=== PATIENT | male | born 1955 | race Caucasian/White ===

== ENCOUNTER 2016-11-28 22:06 | Inpatient (IN) | payer MEDICARE, MEDICAID ==
[~2016-11-28] VITALS: Ht 172.7 cm; Wt 74.4 kg
[2016-11-28] MEDS ORDERED: PANT40TA2 PO (22:53)
[2016-11-28] MEDS ORDERED: MULT1TAB11 PO (22:53)
[2016-11-28] MEDS ORDERED: BUPR150T5 PO (22:53)
[2016-11-28] MEDS ORDERED: SULI200T4 PO (22:53)
[2016-11-28] MEDS ORDERED: ACET-2154 PO (22:53)
[2016-11-28] MEDS ORDERED: OLAN5TAB3 PO (22:53)
[2016-11-28] MEDS ORDERED: PSYL1PAC8 PO (22:53)
[2016-11-28] MEDS ORDERED: [UNRECOGNIZED DRUG - CODE] PO (22:53)
[2016-11-28] MEDS ORDERED: DOCU240C26 PO (22:53)
[2016-11-28] MEDS ORDERED: MIRT15TA PO (22:53)
[2016-11-28 23:10] LABS: BASOPHILS % (AUTO) 0.6 % (0.0-2.0); EOSINOPHILS # (AUTO) 0.1 K/uL (0.0-0.7); EOSINOPHILS % (AUTO) 1.4 % (0.0-7.0); HEMATOCRIT 38.9 % (40-50); HEMOGLOBIN 13.1 G/DL (14.0-18.0); LYMPHOCYTES # (AUTO) 2.4 K/UL (0.8-4.8); LYMPHOCYTES % (AUTO) 31.4 % (20.5-51.5); MEAN CORPUSCULAR HEMOGLOBIN 32.6 UUG (27.0-31.0); MEAN CORPUSCULAR HGB CONC 34 g/dL (32.0-37.0); MEAN CORPUSCULAR VOLUME 97.2 FL (82.0-92.0); MONOCYTES # (AUTO) 0.7 K/UL (0.1-1.30); MONOCYTES % (AUTO) 9.4 % (0.0-11.0); NEUTROPHILS # (AUTO) 4.3 K/UL (1.8-8.9); NEUTROPHILS % (AUTO) 57.2 % (38.5-71.5); PLATELET COUNT (AUTO) 361 K/UL (150-450); RED BLOOD CELL COUNT(AUTO) 4.01 MIL/UL (4.7-6.1); WHITE BLOOD COUNT (AUTO) 7.5 K/UL (4.0-11.2)
[2016-11-28 23:23] LABS: ETHANOL < 3 MG/DL (0-0)
[2016-11-28 23:34] LABS: CARBON DIOXIDE 23 mmol/L (21-32); CHLORIDE 101 mmol/L (98-107); CREATININE 0.8 mg/dL (0.6-1.3); GLUCOSE 104 mg/dL (74-106); POTASSIUM 3.1 mmol/L (3.5-5.1); UREA NITROGEN, BLOOD 8 mg/dL (7-18)
[2016-11-28 23:37] LABS: THYROID STIMULATING HORMONE 3.103 mIU/mL (0.358-3.740)
[2016-11-28 23:38] LABS: ALANINE AMINOTRANSFERASE 22 U/L (16-63); ALKALINE PHOSPHATASE 41 U/L (50-136); ASPARTATE AMINOTRANSFERASE 15 U/L (15-37); BILIRUBIN,DIRECT 0.1 mg/dL (0.0-0.2); BILIRUBIN,TOTAL 0.3 mg/dL (0.2-1.0); TOTAL PROTEIN, SERUM 7.1 g/dL (6.4-8.2)
[2016-11-28 23:39] LABS: ACETAMINOPHEN < 2.0 ug/mL (10-30)
[2016-11-29] MEDS ORDERED: OLANZAPINE 10 MG VIAL IM ONE ×2 (00:39)
--- NOTE | 2016-11-29 02:37 | NUR ---
Pt. admitted to [facility], under care of Dr. Bertrand Belongs List completed
[2016-11-29 02:42] LABS: *BILIRUBIN,URIN NEGATIVE (NEGATIVE); *BLOOD, URINE NEGATIVE (NEGATIVE); *CLARITY,URINE CLEAR (CLEAR); *COLOR,URINE YELLOW (YELLOW); *KETONES,URINE NEGATIVE (NEGATIVE); *PROTEIN,URINE NEGATIVE (NEGATIVE); *UROBILINOGEN,URINE 0.2 E.U./dl (NORMAL); LEUKOCYTE ESTERASE ,URINE NEGATIVE (NEGATIVE); NITRITE, URINE NEGATIVE (NEGATIVE); PH,URINE 6.5 (5.0-8.0); UGLUCOSE NEGATIVE (NEGATIVE)
[2016-11-29 02:47] LABS: BACTERIA,URINE NONE SEEN /HPF (NONE SEEN); RBC,URINE 0-3 /HPF (0-3); SQUAMOUS EPITHELIAL CELL,UR NONE SEEN /HPF (NONE SEEN); WBC,URINE 0-3 /HPF (0-3)
[2016-11-29 02:48] LABS: *AMPHETAMINE, URINE NEGATIVE (NEGATIVE); *BARBITURATE, URINE NEGATIVE (NEGATIVE); *CANNABINOID, URINE NEGATIVE (NEGATIVE); *COCCAINE, URINE NEGATIVE (NEGATIVE); *OPIATE, URINE NEGATIVE (NEGATIVE); *PHENCYCLIDINE SCREEN,URINE NEGATIVE (NEGATIVE)
[2016-11-29] MEDS ORDERED: MAGNESIUM HYDROXIDE 30 ML LIQUID UDC PO PRN (03:00)
[2016-11-29] MEDS ORDERED: TEMAZEPAM 7.5 MG CAPSULE PO PRN (03:00)
[2016-11-29] MEDS ORDERED: LORAZEPAM 1 MG TABLET PO PRN (03:00)
[2016-11-29] MEDS ORDERED: MAG HYDROX/AL HYDROX/SIMETH 30 ML LIQUID UDC PO PRN (03:00)
[2016-11-29] MEDS ORDERED: ACETAMINOPHEN 325 MG TABLET PO PRN (03:00)
[2016-11-29 03:25] VITALS: BP 143/96
--- NOTE | 2016-11-29 03:57 | NUR ---
Admitted 61 year old male to [facility] mental health unit at approx 0220 on a 5150 hold due to Gravely disable adult. Holds started on 11/28/16 at 2039 and will end on 12/01/16 at 2039. Patient came from [facility] ([facility]) where he has been refusing to eat and having significant wt loss and he is withdrawn. Patient has also been refusing medication and become selectively mute. Patient is under the care of Dr Pancho Blake and Dr. Flavio Bertrand (Psych). Patient was calm and cooperative at time of admission. He denies SI or HI at this time; however; he stated that he "hears voices telling him few things". Dr. Blake and Dr Bertrand were made aware of admission and medication were reconcile. Skin assessment: warm, dry and intact. Pt is now in his bed asleep. we will continue to monitor.
[2016-11-29 07:30] VITALS: BP 122/86
[2016-11-29] MEDS: MEGESTROL ACETATE 400 MG/10 ML LIQUID UDC PO SCH (08:36)
[2016-11-29] MEDS ORDERED: Medication Not On Formulary EA (Multivitamins W-Minerals (Multivitamin With Minerals) 1 PO SCH (11:00)
[2016-11-29] MEDS ORDERED: Medication Not On Formulary EA (Psyllium Husk (with Sugar) (Metamucil Packet) 3.4 GM) PO SCH (11:00)
[2016-11-29 11:26] LABS: BASOPHILS # (AUTO) 0.1 K/uL (0.0-8.0); BASOPHILS % (AUTO) 0.9 % (0.0-2.0); EOSINOPHILS # (AUTO) 0.1 K/uL (0.0-0.7); HEMOGLOBIN 14.4 G/DL (14.0-18.0); LYMPHOCYTES # (AUTO) 1.9 K/UL (0.8-4.8); LYMPHOCYTES % (AUTO) 22.6 % (20.5-51.5); MEAN CORPUSCULAR HEMOGLOBIN 32.2 UUG (27.0-31.0); MEAN CORPUSCULAR HGB CONC 33 g/dL (32.0-37.0); MEAN CORPUSCULAR VOLUME 96.3 FL (82.0-92.0); MONOCYTES # (AUTO) 0.9 K/UL (0.1-1.30); MONOCYTES % (AUTO) 10.1 % (0.0-11.0); NEUTROPHILS # (AUTO) 5.6 K/UL (1.8-8.9); NEUTROPHILS % (AUTO) 65.4 % (38.5-71.5); PLATELET COUNT (AUTO) 418 K/UL (150-450); WHITE BLOOD COUNT (AUTO) 8.6 K/UL (4.0-11.2)
[2016-11-29] MEDS: DOCUSATE SODIUM 250 MG CAPSULE PO SCH (11:37)
[2016-11-29] MEDS: PANTOPRAZOLE SODIUM 40 MG TABLET.DR PO SCH (11:38)
[2016-11-29 11:46] LABS: HEMATOCRIT 43.1 % (40-50); RED BLOOD CELL COUNT(AUTO) 4.47 MIL/UL (4.7-6.1)
[2016-11-29 11:59] LABS: BILIRUBIN,TOTAL 0.4 mg/dL (0.2-1.0); CREATININE 0.8 mg/dL (0.6-1.3); MAGNESIUM 1.8 mg/dL (1.8-2.4); PHOSPHOROUS 3.4 mg/dL (2.5-4.9); POTASSIUM 3.7 mmol/L (3.5-5.1); TOTAL PROTEIN, SERUM 7.6 g/dL (6.4-8.2)
[2016-11-29 16:10] VITALS: BP 121/82
[2016-11-29] MEDS: PSYLLIUM SEED PACKET PO SCH (17:03)
[2016-11-29 20:13] VITALS: BP 125/84
[2016-11-29] MEDS: MIRTAZAPINE 15 MG TABLET PO SCH (21:10)
[2016-11-29] MEDS: OLANZAPINE ZYDIS 5 MG TAB.RAPDIS PO SCH (21:10)
--- NOTE | 2016-11-30 06:47 | NUR ---
Patient slept for approx 8.30 hrs through the night. He remains withdrawn and in his room. Compliant with medication at this time.
[2016-11-30] MEDS: MULTIVIT, IRON, MIN NO. 8, FA TABLET PO SCH (09:00)
[2016-11-30] MEDS: PSYLLIUM SEED PACKET PO SCH ×2 (09:00→16:21)
[2016-11-30] MEDS: OLANZAPINE ZYDIS 5 MG TAB.RAPDIS PO SCH ×2 (09:00→21:00)
[2016-11-30] MEDS: DOCUSATE SODIUM 250 MG CAPSULE PO SCH (09:00)
[2016-11-30] MEDS: MEGESTROL ACETATE 400 MG/10 ML LIQUID UDC PO SCH (09:00)
[2016-11-30] MEDS: PANTOPRAZOLE SODIUM 40 MG TABLET.DR PO SCH (09:00)
--- NOTE | 2016-11-30 14:47 | NUR ---
Initial discharge instructions: The pt resides at [facility] [[address] [place] [address]; [phone]]. Pt's sister Jennifer expressed that she does not think pt should return to [facility] upon discharge, and suggested other facilities. SW attempted to to speak with pt regarding potential discharge plan,but was unable to discuss due to pt's refusal to participate in interview. SW will speak to MD and patient regarding most appropriate discharge plan. SW will form a safe and proper discharge plan.
--- NOTE | 2016-11-30 18:56 | NUR ---
GPS/RN-Received call from patients sister that volunteered information about patient, patient sister Jennifer. Family history: Father (nervous breakdown x 3, depression), discharged from [employer] for that reason Brother (paranoia) Grandmother (Paranoia) Meds that have not worked: Haldol sister prefer patient not be on med because of the permanent side effects. Clozaril- patient did not respond well to it; became very illogical, such as patient owned a cat, verbalized the cat pooped too much, so he began to starve the cat. Abilify - patient became highly manic and suicidal Suicide attempts: No suicide attempts in family No suicide attempts by patient however has verbalized SI in the past.
[2016-11-30] MEDS: MIRTAZAPINE 15 MG TABLET PO SCH (21:00)
--- NOTE | 2016-11-30 21:40 | NUR ---
PATIENT RECEIVED IN ROOM, PATIENT ISOLATIVE/WITHDRAWN. PATIENT REFUSED VITAL SIGNS, AND REFUSED MEDICATION. PATIENT REFUSES EYE CONTACT AND REFUSES TO SPEAK. EXPLAINED THE IMPORTANCE OF TAKING MEDICATION, CONTINUE TO REFUSE " NO THANK YOU." NO AGGRESSIVE OR COMBATIVE BEHAVIOR NOTED WILL CONTINUE TO MONITOR. BED IN LOWEST POSITION, BED LOCKED.
[2016-12-01] MEDS: OLANZAPINE ZYDIS 5 MG TAB.RAPDIS PO SCH ×2 (09:18→20:34)
[2016-12-01] MEDS: MULTIVIT, IRON, MIN NO. 8, FA TABLET PO SCH (09:18)
[2016-12-01] MEDS: MEGESTROL ACETATE 400 MG/10 ML LIQUID UDC PO SCH (09:19)
[2016-12-01] MEDS: PANTOPRAZOLE SODIUM 40 MG TABLET.DR PO SCH (09:19)
[2016-12-01] MEDS: DOCUSATE SODIUM 250 MG CAPSULE PO SCH (09:19)
[2016-12-01] MEDS: PSYLLIUM SEED PACKET PO SCH ×2 (09:20→17:06)
[2016-12-01] MEDS: MIRTAZAPINE 15 MG TABLET PO SCH (20:34)
--- NOTE | 2016-12-01 20:57 | NUR ---
PATIENT RECEIVED IN ROOM, PATIENT ISOLATIVE/WITHDRAWN. PATIENT REFUSED VITAL SIGNS, HOWEVER COMPLAINT WITH HS MEDICATION CONTINUE TO CHECK RESPIRATIONS, INITIAL RESPIRATIONS 19 NO HISTORY OF HYPERTENSION OR HYPOTENSION. MINIMAL EYE CONTACT. NO AGGRESSIVE OR COMBATIVE BEHAVIOR NOTED WILL CONTINUE TO MONITOR. BED IN LOWEST POSITION, BED LOCKED.
[2016-12-02] MEDS: MEGESTROL ACETATE 400 MG/10 ML LIQUID UDC PO SCH (08:36)
[2016-12-02] MEDS: PANTOPRAZOLE SODIUM 40 MG TABLET.DR PO SCH (08:37)
[2016-12-02] MEDS: MULTIVIT, IRON, MIN NO. 8, FA TABLET PO SCH (08:37)
[2016-12-02] MEDS: OLANZAPINE ZYDIS 5 MG TAB.RAPDIS PO SCH ×2 (08:37→21:18)
[2016-12-02] MEDS: PSYLLIUM SEED PACKET PO SCH ×2 (08:37→17:25)
[2016-12-02] MEDS: DOCUSATE SODIUM 250 MG CAPSULE PO SCH (08:37)
[2016-12-02] MEDS: MIRTAZAPINE 15 MG TABLET PO SCH (21:18)
[2016-12-03] MEDS: OLANZAPINE ZYDIS 5 MG TAB.RAPDIS PO SCH ×2 (08:27→20:35)
[2016-12-03] MEDS: DOCUSATE SODIUM 250 MG CAPSULE PO SCH (08:27)
[2016-12-03] MEDS: MULTIVIT, IRON, MIN NO. 8, FA TABLET PO SCH (08:27)
[2016-12-03] MEDS: MEGESTROL ACETATE 400 MG/10 ML LIQUID UDC PO SCH (08:27)
[2016-12-03] MEDS: PANTOPRAZOLE SODIUM 40 MG TABLET.DR PO SCH (08:27)
[2016-12-03] MEDS: PSYLLIUM SEED PACKET PO SCH ×2 (08:27→16:08)
[2016-12-03] MEDS: MIRTAZAPINE 15 MG TABLET PO SCH (20:35)
[2016-12-03] MEDS ORDERED: OLANZAPINE ZYDIS 5 MG TAB.RAPDIS ONE (20:41)
[2016-12-04] MEDS: OLANZAPINE ZYDIS 5 MG TAB.RAPDIS PO SCH ×2 (08:22→20:29)
[2016-12-04] MEDS: MEGESTROL ACETATE 400 MG/10 ML LIQUID UDC PO SCH (08:22)
[2016-12-04] MEDS: MULTIVIT, IRON, MIN NO. 8, FA TABLET PO SCH (08:22)
[2016-12-04] MEDS: PANTOPRAZOLE SODIUM 40 MG TABLET.DR PO SCH (08:22)
[2016-12-04] MEDS: DOCUSATE SODIUM 250 MG CAPSULE PO SCH (08:22)
[2016-12-04] MEDS: PSYLLIUM SEED PACKET PO SCH ×2 (10:18→16:04)
[2016-12-04] MEDS: MIRTAZAPINE 15 MG TABLET PO SCH (20:28)
[2016-12-05] MEDS: MULTIVIT, IRON, MIN NO. 8, FA TABLET PO SCH (08:04)
[2016-12-05] MEDS: PSYLLIUM SEED PACKET PO SCH ×2 (08:04→16:49)
[2016-12-05] MEDS: OLANZAPINE ZYDIS 5 MG TAB.RAPDIS PO SCH ×2 (08:04→20:52)
[2016-12-05] MEDS: DOCUSATE SODIUM 250 MG CAPSULE PO SCH (08:04)
[2016-12-05] MEDS: MEGESTROL ACETATE 400 MG/10 ML LIQUID UDC PO SCH (08:04)
[2016-12-05] MEDS: PANTOPRAZOLE SODIUM 40 MG TABLET.DR PO SCH (08:04)
[2016-12-05] MEDS: MIRTAZAPINE 15 MG TABLET PO SCH (20:52)
[2016-12-06] MEDS: OLANZAPINE ZYDIS 5 MG TAB.RAPDIS PO SCH ×2 (09:33→20:08)
[2016-12-06] MEDS: MEGESTROL ACETATE 400 MG/10 ML LIQUID UDC PO SCH (09:33)
[2016-12-06] MEDS: DOCUSATE SODIUM 250 MG CAPSULE PO SCH (09:33)
[2016-12-06] MEDS: PANTOPRAZOLE SODIUM 40 MG TABLET.DR PO SCH (09:33)
[2016-12-06] MEDS: MULTIVIT, IRON, MIN NO. 8, FA TABLET PO SCH (09:33)
[2016-12-06] MEDS: PSYLLIUM SEED PACKET PO SCH ×2 (09:33→17:59)
[2016-12-06] MEDS: MIRTAZAPINE 15 MG TABLET PO SCH (20:08)
[2016-12-07] MEDS: DOCUSATE SODIUM 250 MG CAPSULE PO SCH (08:33)
[2016-12-07] MEDS: MULTIVIT, IRON, MIN NO. 8, FA TABLET PO SCH (08:33)
[2016-12-07] MEDS: OLANZAPINE ZYDIS 5 MG TAB.RAPDIS PO SCH ×2 (08:33→20:40)
[2016-12-07] MEDS: MEGESTROL ACETATE 400 MG/10 ML LIQUID UDC PO SCH (08:33)
[2016-12-07] MEDS: PANTOPRAZOLE SODIUM 40 MG TABLET.DR PO SCH (08:33)
[2016-12-07] MEDS: PSYLLIUM SEED PACKET PO SCH ×2 (08:34→17:13)
[2016-12-07] MEDS: MIRTAZAPINE 15 MG TABLET PO SCH (20:40)
[2016-12-08] MEDS: DOCUSATE SODIUM 250 MG CAPSULE PO SCH (09:07)
[2016-12-08] MEDS: OLANZAPINE ZYDIS 5 MG TAB.RAPDIS PO SCH ×2 (09:07→20:37)
[2016-12-08] MEDS: MEGESTROL ACETATE 400 MG/10 ML LIQUID UDC PO SCH (09:07)
[2016-12-08] MEDS: MULTIVIT, IRON, MIN NO. 8, FA TABLET PO SCH (09:07)
[2016-12-08] MEDS: PSYLLIUM SEED PACKET PO SCH ×2 (09:07→17:59)
[2016-12-08] MEDS: PANTOPRAZOLE SODIUM 40 MG TABLET.DR PO SCH (09:07)
[2016-12-08] MEDS: MIRTAZAPINE 15 MG TABLET PO SCH (20:37)
--- NOTE | 2016-12-09 06:53 | NUR ---
[facility]PS: REMAIN COOPERATIVE WITH MEDS AND UNCOOPERATIVE WITH CARE.SLEPT 5 HRS THROUGH THE NIGHT.CONTINUE PLAN OF CARE.
[2016-12-09] MEDS: PANTOPRAZOLE SODIUM 40 MG TABLET.DR PO SCH (08:40)
[2016-12-09] MEDS: OLANZAPINE ZYDIS 5 MG TAB.RAPDIS PO SCH ×2 (08:40→21:22)
[2016-12-09] MEDS: DOCUSATE SODIUM 250 MG CAPSULE PO SCH (08:40)
[2016-12-09] MEDS: MEGESTROL ACETATE 400 MG/10 ML LIQUID UDC PO SCH (08:40)
[2016-12-09] MEDS: MULTIVIT, IRON, MIN NO. 8, FA TABLET PO SCH (08:40)
[2016-12-09] MEDS: PSYLLIUM SEED PACKET PO SCH ×2 (08:40→17:51)
[2016-12-09] MEDS: MIRTAZAPINE 15 MG TABLET PO SCH (21:22)
[2016-12-10] MEDS: MEGESTROL ACETATE 400 MG/10 ML LIQUID UDC PO SCH (08:26)
[2016-12-10] MEDS: MULTIVIT, IRON, MIN NO. 8, FA TABLET PO SCH (08:26)
[2016-12-10] MEDS: FLUOXETINE HCL 20 MG CAPSULE PO SCH (08:27)
[2016-12-10] MEDS: OLANZAPINE ZYDIS 5 MG TAB.RAPDIS PO SCH ×2 (08:27→20:38)
[2016-12-10] MEDS: DOCUSATE SODIUM 250 MG CAPSULE PO SCH (08:27)
[2016-12-10] MEDS: PANTOPRAZOLE SODIUM 40 MG TABLET.DR PO SCH (08:27)
[2016-12-10] MEDS: PSYLLIUM SEED PACKET PO SCH ×2 (08:27→17:12)
[2016-12-10] MEDS: MIRTAZAPINE 15 MG TABLET PO SCH (20:38)
[2016-12-11] MEDS: FLUOXETINE HCL 20 MG CAPSULE PO SCH (08:29)
[2016-12-11] MEDS: DOCUSATE SODIUM 250 MG CAPSULE PO SCH (08:29)
[2016-12-11] MEDS: PANTOPRAZOLE SODIUM 40 MG TABLET.DR PO SCH (08:29)
[2016-12-11] MEDS: MULTIVIT, IRON, MIN NO. 8, FA TABLET PO SCH (08:29)
[2016-12-11] MEDS: OLANZAPINE ZYDIS 5 MG TAB.RAPDIS PO SCH ×2 (08:29→20:14)
[2016-12-11] MEDS: MEGESTROL ACETATE 400 MG/10 ML LIQUID UDC PO SCH (08:29)
[2016-12-11] MEDS: PSYLLIUM SEED PACKET PO SCH ×2 (08:30→16:00)
--- NOTE | 2016-12-11 16:30 | NUR ---
PT NOT ON ACCU CHECK.
--- NOTE | 2016-12-11 16:35 | NUR ---
ACCU CHECK RESULT OF 59 DONE ON ANDIE CHOPRA. NECESSARY PROTOCOLS FOLLOWED.
[2016-12-11] MEDS: MIRTAZAPINE 15 MG TABLET PO SCH (20:14)
[2016-12-12] MEDS: PSYLLIUM SEED PACKET PO SCH ×2 (08:24→17:04)
[2016-12-12] MEDS: FLUOXETINE HCL 20 MG CAPSULE PO SCH (08:25)
[2016-12-12] MEDS: DOCUSATE SODIUM 250 MG CAPSULE PO SCH (08:25)
[2016-12-12] MEDS: PANTOPRAZOLE SODIUM 40 MG TABLET.DR PO SCH (08:25)
[2016-12-12] MEDS: OLANZAPINE ZYDIS 5 MG TAB.RAPDIS PO SCH ×2 (08:25→20:14)
[2016-12-12] MEDS: MULTIVIT, IRON, MIN NO. 8, FA TABLET PO SCH (08:25)
[2016-12-12] MEDS: MEGESTROL ACETATE 400 MG/10 ML LIQUID UDC PO SCH (08:25)
[2016-12-12] MEDS: MIRTAZAPINE 15 MG TABLET PO SCH (20:14)
[2016-12-13] MEDS: PANTOPRAZOLE SODIUM 40 MG TABLET.DR PO SCH (08:50)
[2016-12-13] MEDS: DOCUSATE SODIUM 250 MG CAPSULE PO SCH (08:50)
[2016-12-13] MEDS: OLANZAPINE ZYDIS 5 MG TAB.RAPDIS PO SCH (08:50)
[2016-12-13] MEDS: MULTIVIT, IRON, MIN NO. 8, FA TABLET PO SCH (08:50)
[2016-12-13] MEDS: FLUOXETINE HCL 20 MG CAPSULE PO SCH (08:50)
[2016-12-13] MEDS: MEGESTROL ACETATE 400 MG/10 ML LIQUID UDC PO SCH (08:50)
[2016-12-13] MEDS: PSYLLIUM SEED PACKET PO SCH (08:51)
--- NOTE | 2016-12-13 12:09 | NUR ---
DC Note: Patient will be discharged to [facility] [[address] [place] [address]; [phone]] via ambulance at 1:30pm. Patient's sister Jennifer [[phone]] is aware and agreeable with discharge plans. Patient will follow up with Dr. Reece (Psychiatrist) [[phone]] and Dr. Ortega (Inventory Control Manager) [[phone]]. SW provided substance abuse referrals for [facility] [[address] [place] [address]; ], [facility] [[address] [place] [address]; ], and [facility] [[address] [place] [address], ].
--- NOTE | 2016-12-13 12:25 | NUR ---
ALL dcd instructions and legal paperwork done by charge machine operator. And at [address] [facility] called and report given to rn. Rubalcava. As informed by charge machine operator. estimated patient pear picker will be at 1400.
--- NOTE | 2016-12-13 13:46 | NUR ---
Ambulance services in the unit to waste picker patient; legal documentation signed and Report given to Tulio. patient left with vitals signs stable, no c/of any discomfort belonging and valuables returned and forms in the chart.
== END 2016-12-13 13:50 | DRG 885 ==
LOC: ER 22:06 → GPS 11-29 01:05
PROVIDERS: ADMIT Psychiatry & Neurology Psychiatry
DX: F25.0 Schizoaffective disorder, bipolar type (principal); E87.2 Acidosis; E87.1 Hypo-osmolality and hyponatremia; Z91.14 Patient's other noncompliance with medication regimen; E03.9 Hypothyroidism, unspecified; F50.89 Other specified eating disorder; Z79.899 Other long term (current) drug therapy; D53.9 Nutritional anemia, unspecified; J45.909 Unspecified asthma, uncomplicated; F94.0 Selective mutism; E87.6 Hypokalemia; E78.5 Hyperlipidemia, unspecified; M54.5 Low back pain
CPT/HCPCS: 36415; 70030-TC; 70450; 71010; 80307; 83605; 83735; 84100; 84443; 85025; 85730; 87040; 87086; 93005; A4663; G0480; G0480-TC; J2358; J8999